=== PATIENT | male | born 1960 | race Hispanic/Latino ===

== ENCOUNTER → 2021-05-14 14:24 | Outpatient (CLI) | payer BC, SELFPAY ==
--- NOTE | ~2021-05-14 | MR_ITS ---
EXAMINATION: MR knee RT wo con DATE: 05/14/2021 15:36 INDICATION: Primary osteoarthritis of the right knee. TECHNIQUE: Magnetic resonance imaging (MRI) of the right knee was performed without intravenous contr ast. Sequences included coronal PD-weighted FSE, coronal PD-weighted FS FSE, sagittal T2-weighted FS E, sagittal PD-weighted FS FSE and axial PD weighted fat saturated FSE. COMPARISON: None. FINDINGS: Medial compartment: Medial meniscus is normal. Articular cartilage is normal. Lateral compartment: Complex tear of the lateral meniscus with longitudinal horizontal tear plane beginning in the anterio r body which extends to the inferior articular surface this transitions to a more macerated appearanc e at the anterior horn. Partial-thickness cartilage loss with chondral surface regularity at the ante rior tibial plateau. There is deep fissuring without degenerative subchondral changes at the anterior and posterior weightbearing lateral femoral condyle. 16 x 10 mm region of deep. Near full-thickness chondral ulceration at the central weightbearing lateral femoral condyle. Patellofemoral compartment: Additional extensive full/near full-thickness chondral ulceration with cortical remodeling and mild s ubarticular edema at the lateral patellar facet extending to the apical ridge and juxtaposed lateral trochlea. Small central subchondral osteophyte at the site of additional deep chondral ulceration at the trochlear groove. Chondral swelling and partial-thickness fissuring at the medial trochlea. Parti al thickness fissuring at the medial patellar facet. Ligaments and tendons: Anterior cruciate ligament is normal. There is thickening and mild increased signal of the posterior cruciate ligament suggesting partial tear. The medial collateral ligament and fibular collateral liga ment complex are normal. Patellar tendon is normal. Mild distal quadriceps tendinopathy. The visualiz ed medial and lateral hamstring tendons as well as the iliotibial band are normal. Fluid: Small knee joint effusion with mild to moderate synovitis at the suprapatellar pouch and along the po sterior margin of Hoffa's fat pad. No loose osteochondral bodies identified. Osseous/other: Small to moderate size marginal osteophytes at the lateral and patellofemoral compartments. No fractu re or pathologic marrow replacing process. IMPRESSION: 1. Complex tear at the anterior horn and anterior body of the lateral meniscus. 2. 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 3. Likely partial tear of the posterior cruciate ligament. 4. Likely reactive small right knee joint effusion with mild to moderate scattered synovitis. Reviewed, dictated and finalized at location A. IMPRESSION: 1. Complex tear at the anterior horn and anterior body of the lateral meniscus. 2. Severe patellofemoral osteoarthritis with extensive high-grade chondral leandro jesus and mild lateral compartment osteoarthritis with moderate grade and smaller region of high-grade chondromalacia. 3. Likely partial tear of the posterior cruciate ligament. 4. Likely reactive small right knee joint effusion with mild to moderate scatte red synovitis.
== END ==
DX: M17.11 Unilateral primary osteoarthritis, right knee (principal); S83.271A Complex tear of lateral meniscus, current injury, right knee, initial encounter
CPT/HCPCS: 73721